=== PATIENT | female | born 1995 | race Caucasian/White ===

== ENCOUNTER 2021-01-17 13:49 | Emergency (ER) | payer OTHER, SELFPAY ==
[2021-01-17 14:06] VITALS: BP 115/72; PULSE 83; RESP 18; TEMP 36.6; O2SAT 99; BMI 21.4
--- NOTE | 2021-01-17 14:14 | USR_ITS ---
PROCEDURE INFORMATION: Exam: US First Trimester, Transabdominal and US , Transvaginal Exam date and time: 01/17/2021 2:51 PM Age: 25 years old Clinical indication: Lmp or gestational age (in weeks): 10 weeks 5 days (by lmp); Other: Vaginal bleedein; ; Additional info: Vaginal bleeding TECHNIQUE: Imaging protocol: Real-time transabdominal obstetrical ultrasound of the maternal pelvis and a first trimester , less than 14 weeks 0 days, with image documentation. Transvaginal imaging was used for better evaluation of the fetus, adnexa, and/or cervix. COMPARISON: US OB >14 Weeks 37612 11/15/2016 10:45 AM FINDINGS: Gestation: There is a large gestational sac which contains complex internal echoes. There is a very small yolk sac. There is no definable pole. Yolk sac measures 3.1 mm diameter. Embryonic/ heart rate: No cardiac activity documented. Placenta: Subchorionic hemorrhage measures 4.2 cm longitudinal by 0.4 cm x 1.1 cm. BIOMETRY: Gestational age (AUA): Estimated gestational age based on the mean sac diameter of the gestational sac is 7 weeks, 6 days. Mean sac diameter: Mean sac diameter of the gestational sac is 25 mm. MATERNAL: Uterus: Anteverted uterus position. No uterine enlargement. Cervix: Unremarkable. Right adnexa: Maternal right ovary is normal in size and sonographic appearance. Left adnexa: Maternal left ovary is normal in size and sonographic appearance. Intraperitoneal space: No pelvic fluid collection. US/US OB <=14 wk fetus w transvag IMPRESSION: 1. Large elongated gestational sac in the fundal aspect of the endometrial cavity which contains scattered low lying internal echoes and a small yolk sac but no visible pole or documented cardiac activity. A nonviable 1st trimester gestation is favored. 2. Subchorionic hemorrhage is present. 3. A short interval follow-up ultrasound is recommended in 1 week, as well as serial documentation of serum quantitative beta HCG levels.
--- NOTE | 2021-01-17 14:15 | W.ED.FEMALGU ---
HPI - Female Genitourinary General: Chief complaint: Urogenital-Female Stated complaint: COMPLICATIONS Time Seen by Provider: 01/17/21 14:14 History of Present Illness: HPI Narrative: 25-year-old female comes in today with concerns of bloody discharge. Patient reports noticing some mild spotting at times. Patient denies any pain or discomfort. Patient denies any fever or chills. Patient has had a total of 3 pregnancies, 1 delivery, and 1 miscarriage. Patient appears well. Patient appears no acute distress. MD elicited complaint: vaginal bleeding and possible miscarriage Onset (ago): day(s) Severity: mild Vaginal bleeding: scant Exacerbating factors: none Associated symptoms: Reports no associated symptoms Treatment prior to arrival: none Sexual activity: No Possible : at home test positive Date of Last Menstrual Period: 10/29/20 Review of Systems General: Reports: 10 or more systems reviewed and unremarkable except in HPI and below : Reports: vaginal bleeding [facility] ED Female Reproductive History: Date of last menstrual period: 10/29/20 Physical Exam Const: COMMON NORMALS: no acute distress and patient oriented x3 GENERAL APPEARANCE: cooperative HENMT: COMMON NORMALS: normocephalic and Normal external nose present HEAD & SCALP: normal to inspection and normocephalic NOSE: Normal external nose present MOUTH: Normal oral and palatal mucosa present Eye: GENERAL EYE: appearance normal, both eyes and all related structures Neck/C-Spine: COMMON NORMALS: full ROM Chest: COMMONS NORMALS: normal inspection of the chest Resp: COMMON NORMALS: normal respiratory effort EFFORT & INSPECTION: Yes able to speak in complete sentences Cardio: COMMON NORMALS: regular rate and regular rhythm RATE: regular rate RHYTHM: regular rhythm GI: COMMON NORMALS: non-tender : COMMON NORMALS: Yes no CVA tenderness BLADDER/KIDNEY EXAM: Yes no CVA tenderness Back/Pelvis: COMMON NORMALS: no CVA tenderness and thoracic and lumbar spine normal to inspection Extremity: COMMON NORMALS: normal to inspection Neuro: COMMON NORMALS: patient oriented x3 and moves all extremities Psych: COMMON NORMALS: mental status grossly normal and cooperative Skin: COMMON NORMALS: no rashes or lesions noted GENERAL SKIN EXAM: no rashes or lesions noted Course ED course: 1500, patient's blood type is B+, confirmed by lab. 1530, ultrasound noted no heart movement, yolk sac was in place, no other significant abnormalities were reported. Vital Signs: Vital signs: Vital Signs Temperature 97.8 F 01/17/21 14:06 Pulse Rate 89 01/17/21 16:09 Respiratory Rate 18 01/17/21 16:09 Blood Pressure 115/72 01/17/21 14:06 Pulse Oximetry 98 01/17/21 16:09 MDM - Female MDM Narrative: Medical decision making narrative: Patient comes in today for concerns of threatened miscarriage. On exam abdomen soft nontender. Bowel sounds are present. Skin was warm and dry. Vital signs were normal. Differential diagnosis includes threatened miscarriage, bleeding in first trimester , urinary tract infection. Laboratory values were unremarkable. Urinalysis had trace red blood cells and white blood cells. hCG was 17,000, ultrasound noted a large elongated gestational sac with a small yolk sac with no visible pole documented or cardiac activity suggesting a nonviable first trimester . Reviewed exam with patient with recommendations for repeat blood testing and ultrasound with MECHANICAL TEST ENGINEER or primary care. Patient reported understanding and agreed to plan. Lab Data: Labs: Lab Results 01/17/21 01/17/21 01/17/21 Range/Units 15:35 15:35 15:36 WBC 7.2 (4.0-10.0) 10^3/ uL RBC 4.08 L (4.1-5.3) 10^6/u L Hgb 11.9 (11.5-15.3) g/dL Hct 37.0 (37.0-47.0) % MCV 90.7 (81-99) fL MCH 29.2 (28.0-34.0) pg MCHC 32.2 (30.0-36.0) g/dL RDW 13.3 (12.1-15.1) % Plt Count 345 (130-400) 10^3/c mm MPV 8.9 (7.4-10.4) fL Neut % (Auto) 76.4 % Lymph % (Auto) 16.0 % [place] % (Auto) 6.8 % Eos % (Auto) 0.1 % Baso % (Auto) 0.6 % Neut # (Auto) 5.51 (1.8-7.7) 10^3/u L Lymph # (Auto) 1.2 (0.8-4.8) 10^3/u L [place] # (Auto) 0.5 (0.2-0.9) 10^3/u L Eos # (Auto) 0.0 (0.0-0.8) 10^3/u L Baso # (Auto) 0.0 (0.0-0.1) 10^3/u L Nucleated RBC % (a uto) 0 % Nucleated RBCs # 0.0 /100WBC Sodium 139 (136-145) mmol/L Potassium 3.5 (3.5-5.1) mmol/L Chloride 102 (98-107) mmol/L Carbon Dioxide 23 (22-29) mmol/L Anion Gap 17.5 (5-19) BUN 7 (6-20) mg/dL Creatinine 0.4 L (0.5-0.9) mg/dL GFR Calculation 191.5 H (90-130) mL/min Glucose 87 (65-115) mg/dL Calculated Osmolal ity 285 (285-295) mOsm/k g Calcium 10.1 (8.5-10.5) mg/dL Total Bilirubin 0.3 (0.15-1.2) mg/dL AST 14 (0-32) U/L ALT 11 (0-33) U/L Alkaline Phosphata se 41 (35-105) IU/L Total Protein 8.1 (6.6-8.7) g/dL Albumin 5.1 (3.5-5.2) g/dL Globulin 3.0 (1.3-4.6) g/dL Ser , [place] 15718.00 mIU/mL Urine Color Yellow (Yellow) Urine Appearance Clear (CLEAR) Urine pH 5 (5-7) Ur Specific Gravit y 1.020 (1.005-1.030) Urine Protein Neg (Negative) Urine Glucose (UA) Norm (Normal) Urine Ketones 1+ H (Negative) Urine Blood 3+ H (Negative) Urine Nitrate Negative (Negative) Urine Bilirubin Neg (Negative) Urine Urobilinogen Norm (Negative) mg/dL Ur Leukocyte Carlotta ase Negative (Negative) Urine RBC 0-4 H (0-2) /hpf Urine WBC 0-4 H (0-5) /hpf Ur Squamous Epith Cells 0-4 H (0-5) /hpf Amorphous Sediment Not Reportable Urine Bacteria Trace (NONE) /hpf Urine Mucus 1+ /hpf Discharge Plan Discharge Patient Disposition: Home Clinical Impression: Miscarriage, threatened, early Condition: Stable Prescriptions: No Action Aspir-81 81 mg Tablet,Delayed Release (Dr/Ec) 81 mg PO DAILY RF: 0 Gummies 400 mcg-35 mg- 25 mg-5 mg Tablet,Chewable 2 tab PO DAILY RF: 0 Discharge Orders: Discharge ED (Routine); Ordered 01/17/21 Ordered By: Flavio Rosales Referrals: Sara Joyce MD [Primary Care Provider] - Discharge Diet: Usual diet Discharge Activity: Increase activity as tolerated Patient Instructions: Threatened Miscarriage (ED), Opioid Safety Activity Restrictions/Additional Instructions: Home and rest. Drink plenty of fluids. Monitor for fever or bleeding greater than one pad an hour. Follow-up with primary care or MECHANICAL TEST ENGINEER tomorrow for appointment for repeat hCG testing and ultrasound. Return to the ED for new concerns or worsening condition. Coding Level of Care Code ED Senior Interaction Designer for Chg Fwd Exam Comprehensive
[2021-01-17 14:49] VITALS: PULSE 77; RESP 18; O2SAT 100
--- NOTE | 2021-01-17 15:01 | PC.NURSE ---
US at bedside
[2021-01-17 15:20] VITALS: PULSE 103; RESP 18; O2SAT 99
[2021-01-17 15:41] VITALS: PULSE 82; RESP 16; O2SAT 98
[2021-01-17 15:46] LABS: Basophils % 0.6 %; Eosinophils % 0.1 %; Hemoglobin 11.9 g/dL (11.5-15.3); Lymphocytes # 1.2 10^3/uL (0.8-4.8); Mean Corpuscular HGB Conc 32.2 g/dL (30.0-36.0); Mean Corpuscular Hemoglobin 29.2 pg (28.0-34.0); Mean Corpuscular Volume 90.7 fL (81-99); Mean Platelet Volume 8.9 fL (7.4-10.4); Monocytes # 0.5 10^3/uL (0.2-0.9); Monocytes % 6.8 %; Neutrophils # 5.51 10^3/uL (1.8-7.7); Neutrophils % 76.4 %; Nucleated Red Blood Cells % 0 %; Platelet Count 345 10^3/cmm (130-400); Red Blood Count 4.08 10^6/uL (4.1-5.3); Red Cell Distribution Width 13.3 % (12.1-15.1); White Blood Count 7.2 10^3/uL (4.0-10.0)
[2021-01-17 16:04] LABS: Urine Appearance Clear (CLEAR); Urine Color Yellow (Yellow)
[2021-01-17 16:05] LABS: Add Urine Microscopic? YES; Bilirubin Urine Neg (Negative); Blood Urine 3+ (Negative); Glucose Urine UA Norm (Normal); Ketones Urine 1+ (Negative); Leukocyte Esterase Urine Negative (Negative); Nitrate Urine Negative (Negative); Protein Urine Neg (Negative); Urobilinogen Urine Norm (Negative); pH Urine 5 (5-7)
[2021-01-17 16:07] LABS: RBC Urine 0-4 /hpf (0-2); Squamous Epithelial Cell Urine 0-4 /hpf (0-5)
[2021-01-17 16:08] LABS: Bacteria Urine TRACE /hpf; Mucus Urine 1+ /hpf; WBC Urine 0-4 /hpf (0-5)
[2021-01-17 16:09] VITALS: PULSE 89; RESP 18; O2SAT 98
[2021-01-17 16:09] LABS: Add Urine Culture? No
[2021-01-17 16:19] LABS: Alanine Aminotransferase 11 U/L (0-33); Albumin Level 5.1 g/dL (3.5-5.2); Alkaline Phosphatase 41 IU/L (35-105); Anion Gap 17.5 (5-19); Aspartate Amino Transferase 14 U/L (0-32); Blood Urea Nitrogen 7 mg/dL (6-20); Calcium 10.1 mg/dL (8.5-10.5); Carbon Dioxide 23 mmol/L (22-29); Chloride 102 mmol/L (98-107); Glomerular Filtration Rate 191.5 mL/min (90-130); Glucose 87 mg/dL (65-115); Osmolality Calculated 285 mOsm/kg (285-295); Potassium 3.5 mmol/L (3.5-5.1); Sodium 139 mmol/L (136-145); Total Bilirubin 0.3 mg/dL (0.15-1.2); Total Protein 8.1 g/dL (6.6-8.7)
== END 2021-01-17 16:40 | disposition home or self-care (01) ==
PROVIDERS: Emergency Provider Nurse Practitioner Family; PCP Family Medicine
DX: O20.0 Threatened abortion (principal); Z3A.00 Weeks of gestation of pregnancy not specified; O26.891 Other specified pregnancy related conditions, first trimester; Z79.82 Long term (current) use of aspirin
CPT/HCPCS: 76801; 76817; 80053; 81001; 84702; 85025; 99283

== ENCOUNTER 2021-01-21 22:48 | Observation (INO) | payer OTHER, SELFPAY ==
[2021-01-21 22:52] VITALS: BP 111/70; PULSE 88; RESP 19; O2SAT 99; BMI 21.1
--- NOTE | 2021-01-21 22:59 | ED_ITS ---
Documented by User: MEGAN Arreola 01/22/21 00:15 HPI - Female Genitourinary General: Chief complaint: Vaginal Bleeding Stated complaint: HEAVY BLEEDING/POST MISCARRIAGE Time Seen by Provider: 01/21/21 22:49 Source: patient Mode of arrival: ambulatory Limitations: no limitations History of Present Illness: HPI Narrative: Patient is a 25-year-old female here for evaluation of vaginal bleeding following a diagnosis of a nonviable . Patient was seen at our facility 4 days ago and had an hCG of over 17,000 but ultrasound showed no heart rate. She tells me at that visit she was having scant brownish discharge. She states they followed up with Dr. Joyce this morning and had a repeat ultrasound performed which again looked like a nonviable . Patient tells me later that day she began having heavy vaginal bleeding and passing large clots. She is having minor pelvic cramping. She denies lightheadedness, dizziness, passing out episodes. Vital signs are stable upon arrival. MD elicited complaint: vaginal bleeding and possible miscarriage Onset (ago): hour(s) Severity: moderate Vaginal discharge: none Vaginal bleeding: heavy, clots and POC/tissue Exacerbating factors: none Relieving factors: none Associated symptoms: Reports vaginal bleeding; Deny abdominal pain or nausea Treatment prior to arrival: none Patient : Yes Date of Last Menstrual Period: 11/08/20 Review of Systems Const: Denies: fever(s), chills, fatigue or malaise Card: Denies: chest pain Resp: Denies: dyspnea GI: Denies: abdominal pain, nausea, vomiting or change in stool character : Reports: vaginal bleeding and pelvic pain (mild cramping ); Denies: flank pain or dysuria Musc: Denies: back pain Neuro: Denies: dizziness [facility] ED Female Reproductive History: Date of last menstrual period: 11/08/20 Physical Exam Const: COMMON NORMALS: no acute distress, average body habitus, patient oriented x3, no limitations, healthy appearing, alert and well nourished GENERAL APPEARANCE: cooperative Resp: COMMON NORMALS: normal respiratory effort GI: COMMON NORMALS: Normal to inspection, nondistended, normoactive bowel sounds present, Soft to palpation, No hepatosplenomegaly present and no masses PALPATION: Yes Soft to palpation, Yes Tenderness to palpation present (GI) (mild-lower abdomen/pelvis) and Yes No hepatosplenomegaly present : COMMON NORMALS: Yes normal external appearance SPECULUM EXAM - VAGINA: Yes vaginal bleeding and Yes tissue present in vagina SPECULUM EXAM - CERVIX: Yes Cervical os open and Yes Tissue present in the cervical os OB/EXTERNAL & SPECULUM: tissue present in vagina, Cervical os open and vaginal bleeding Neuro: COMMON NORMALS: patient oriented x3 SENSORIUM/ORIENTATION: Yes alert Course Vital Signs: Vital signs: Vital Signs Temperature 99.0 F 01/21/21 23:12 Pulse Rate 88 01/21/21 22:52 Respiratory Rate 19 H 01/21/21 22:52 Blood Pressure 111/70 01/21/21 22:52 Pulse Oximetry 99 01/21/21 22:52 MDM - Female MDM Narrative: Medical decision making narrative: Care transferred to Dr. Saucedo at end of shift. Labs pending. Lab Data: Labs: Lab Results 01/21/21 01/21/21 01/22/21 Range/Units 23:30 23:30 00:35 WBC 10.0 (4.0-10.0) 10^3/ uL RBC 3.37 L (4.1-5.3) 10^6/u L Hgb 9.9 L 9.1 L (11.5-15.3) g/dL Hct 30.9 L 27.8 L (37.0-47.0) % MCV 91.7 (81-99) fL MCH 29.4 (28.0-34.0) pg MCHC 32.0 (30.0-36.0) g/dL RDW 13.4 (12.1-15.1) % Plt Count 291 (130-400) 10^3/c mm MPV 9.1 (7.4-10.4) fL Neut % (Auto) 77.0 % Lymph % (Auto) 15.0 % [place] % (Auto) 6.4 % Eos % (Auto) 0.9 % Baso % (Auto) 0.4 % Neut # (Auto) 7.73 H (1.8-7.7) 10^3/u L Lymph # (Auto) 1.5 (0.8-4.8) 10^3/u L [place] # (Auto) 0.6 (0.2-0.9) 10^3/u L Eos # (Auto) 0.1 (0.0-0.8) 10^3/u L Baso # (Auto) 0.0 (0.0-0.1) 10^3/u L Nucleated RBC % (a uto) 0 % Nucleated RBCs # 0.0 /100WBC Sodium 139 (136-145) mmol/L Potassium 3.9 (3.5-5.1) mmol/L Chloride 105 (98-107) mmol/L Carbon Dioxide 25 (22-29) mmol/L Anion Gap 12.9 (5-19) BUN 10 (6-20) mg/dL Creatinine 0.6 (0.5-0.9) mg/dL GFR Calculation 119.9 (90-130) mL/min Glucose 99 (65-115) mg/dL Calculated Osmolal ity 287 (285-295) mOsm/k g Calcium 9.1 (8.5-10.5) mg/dL Total Bilirubin 0.2 (0.15-1.2) mg/dL AST 13 (0-32) U/L ALT 9 (0-33) U/L Alkaline Phosphata se 33 L (35-105) IU/L Total Protein 7.1 (6.6-8.7) g/dL Albumin 4.4 (3.5-5.2) g/dL Globulin 2.7 (1.3-4.6) g/dL Ser , Goran i-Qnt 8896.00 mIU/mL Discharge Plan Discharge Admit Provider: Sara Joyce Coding Level of Care Code ED Management Professional for Chg Fwd Exam Expanded Problem Focused Documented by User: Joy Saucedo MD 01/22/21 02:49 HPI - Female Genitourinary General: Chief complaint: Vaginal Bleeding Stated complaint: HEAVY BLEEDING/POST MISCARRIAGE Time Seen by Provider: 01/21/21 22:49 Course Vital Signs: Vital signs: Vital Signs Temperature 99.0 F 01/21/21 23:12 Pulse Rate 88 01/21/21 22:52 Respiratory Rate 19 H 01/21/21 22:52 Blood Pressure 111/70 01/21/21 22:52 Pulse Oximetry 99 01/21/21 22:52 MDM - Female MDM Narrative: Medical decision making narrative: I took patient over from midlevel. She did have vaginal bleeding here. Of hypotension and had a likely vagal response to her IV. Her bleeding is seem to have slowed down pressure is stabilized. Her hemoglobin is 9.1. Ultrasound showed incomplete AB with no gestational sac. I spoke to patient's OB Dr. Joyce and will admit for observation. Patient stable when she left the ER. Lab Data: Labs: Lab Results 01/21/21 01/21/21 01/22/21 Range/Units 23:30 23:30 00:35 WBC 10.0 (4.0-10.0) 10^3/ uL RBC 3.37 L (4.1-5.3) 10^6/u L Hgb 9.9 L 9.1 L (11.5-15.3) g/dL Hct 30.9 L 27.8 L (37.0-47.0) % MCV 91.7 (81-99) fL MCH 29.4 (28.0-34.0) pg MCHC 32.0 (30.0-36.0) g/dL RDW 13.4 (12.1-15.1) % Plt Count 291 (130-400) 10^3/c mm MPV 9.1 (7.4-10.4) fL Neut % (Auto) 77.0 % Lymph % (Auto) 15.0 % [place] % (Auto) 6.4 % Eos % (Auto) 0.9 % Baso % (Auto) 0.4 % Neut # (Auto) 7.73 H (1.8-7.7) 10^3/u L Lymph # (Auto) 1.5 (0.8-4.8) 10^3/u L [place] # (Auto) 0.6 (0.2-0.9) 10^3/u L Eos # (Auto) 0.1 (0.0-0.8) 10^3/u L Baso # (Auto) 0.0 (0.0-0.1) 10^3/u L Nucleated RBC % (a uto) 0 % Nucleated RBCs # 0.0 /100WBC Sodium 139 (136-145) mmol/L Potassium 3.9 (3.5-5.1) mmol/L Chloride 105 (98-107) mmol/L Carbon Dioxide 25 (22-29) mmol/L Anion Gap 12.9 (5-19) BUN 10 (6-20) mg/dL Creatinine 0.6 (0.5-0.9) mg/dL GFR Calculation 119.9 (90-130) mL/min Glucose 99 (65-115) mg/dL Calculated Osmolal ity 287 (285-295) mOsm/k g Calcium 9.1 (8.5-10.5) mg/dL Total Bilirubin 0.2 (0.15-1.2) mg/dL AST 13 (0-32) U/L ALT 9 (0-33) U/L Alkaline Phosphata se 33 L (35-105) IU/L Total Protein 7.1 (6.6-8.7) g/dL Albumin 4.4 (3.5-5.2) g/dL Globulin 2.7 (1.3-4.6) g/dL Ser , Goran i-Qnt 8896.00 mIU/mL Imaging Data: US OB: Attestation: I personally reviewed and interpreted this imaging study as follows: Radiologist's impression: [address] [address] Ultrasound Report Signed Patient: Pat Rueda Unit #: [id number] : [id number] Age/Sex: 25 / F ADM Date: 01/21/21 Loc: ER Room/Bed: Attending Dr: Ordering Provider/Ordering MD: Nazia Celestin Date of Service: 01/22/21 Procedure(s): US pelvic limited [id number] Accession Number(s): [id number] Report Number: [id number] PROCEDURE INFORMATION: Exam: US , Limited Exam date and time: 01/22/2021 1:08 AM Age: 25 years old Clinical indication: complicated by abdominal or pelvic pain; Lower; First trimester; Gestational age or lmp: 11 w; ; Additional info: Active miscarriage TECHNIQUE: Imaging protocol: Real-time ultrasound of the maternal uterus with image documentation. Exam focused on the clinical indication. COMPARISON: US CV echo complete* [id number] 01/17/2021 3:01 PM FINDINGS: Gestation: There is no evidence for an intrauterine gestation. MATERNAL: Uterus: There is heterogeneous echogenicity material seen within the endometrial canal compatible with some clotted blood and/or debris. These findings suggest incomplete . Right adnexa: The right ovary measures 2.1 x 2.4 x 2 4 cm. Vascular flow is demonstrated within the right ovary with color Doppler and duplex waveform sonography. Left adnexa: The left ovary measures 3.1 x 2.52.2 cm. US/US pelvic limited [id number] IMPRESSION: There is no evidence for an intrauterine gestational sac. There is heterogeneous material seen within the endometrial canal compatible with clotted blood and debris, findings suggesting incomplete . EKG Data: EKG 1: Attestation: I personally reviewed and interpreted this EKG as follows: EKG Data: 01/22/21 EKG interpretation time: 00:06 Interpretation: nsr hr [address] or t wave abnormalities qrs 97 qtc 404 Discharge Plan Discharge Admit Provider: Sara Joyce Coding Level of Care Code ED Management Professional for Chg Fwd Exam Expanded Problem Focused
[2021-01-21 23:12] VITALS: TEMP 37.2
[2021-01-22] VITALS (28 sets, daily range): BP systolic 88–107; BP diastolic 43–76; PULSE 76–108; RESP 15–18; TEMP 36.6–37.2; O2SAT 95–100; BMI 21.1
[2021-01-22 00:15] LABS: Basophils % 0.4 %; Eosinophils # 0.1 10^3/uL (0.0-0.8); Eosinophils % 0.9 %; Hematocrit 30.9 % (37.0-47.0); Hemoglobin 9.9 g/dL (11.5-15.3); Lymphocytes # 1.5 10^3/uL (0.8-4.8); Mean Corpuscular Hemoglobin 29.4 pg (28.0-34.0); Mean Corpuscular Volume 91.7 fL (81-99); Mean Platelet Volume 9.1 fL (7.4-10.4); Monocytes # 0.6 10^3/uL (0.2-0.9); Monocytes % 6.4 %; Neutrophils # 7.73 10^3/uL (1.8-7.7); Nucleated Red Blood Cells % 0 %; Platelet Count 291 10^3/cmm (130-400); Red Blood Count 3.37 10^6/uL (4.1-5.3); Red Cell Distribution Width 13.4 % (12.1-15.1)
[2021-01-22] MEDS: sodium chloride 0.9% 1,000 ML 999 ML IV (00:28)
--- NOTE | 2021-01-22 00:30 | USR_ITS ---
PROCEDURE INFORMATION: Exam: US , Limited Exam date and time: 01/22/2021 1:08 AM Age: 25 years old Clinical indication: complicated by abdominal or pelvic pain; Lower; First trimester; Gestational age or lmp: 11 w; ; Additional info: Active miscarriage TECHNIQUE: Imaging protocol: Real-time ultrasound of the maternal uterus with image documentation. Exam focused on the clinical indication. COMPARISON: US CV echo complete* [id number] 01/17/2021 3:01 PM FINDINGS: Gestation: There is no evidence for an intrauterine gestation. MATERNAL: Uterus: There is heterogeneous echogenicity material seen within the endometrial canal compatible with some clotted blood and/or debris. These findings suggest incomplete . Right adnexa: The right ovary measures 2.1 x 2.4 x 2 4 cm. Vascular flow is demonstrated within the right ovary with color Doppler and duplex waveform sonography. Left adnexa: The left ovary measures 3.1 x 2.52.2 cm. US/US pelvic limited [id number] IMPRESSION: There is no evidence for an intrauterine gestational sac. There is heterogeneous material seen within the endometrial canal compatible with clotted blood and debris, findings suggesting incomplete .
[2021-01-22] MEDS: miSOPROStol 100 mcg tablet 600 MCG PO (00:31)
[2021-01-22] MEDS: miSOPROStol 200 mcg Tablet 600 MCG PO (00:36)
--- NOTE | 2021-01-22 00:40 | PC.NURSE ---
Pt unable to tolerate orthostatic BP at this time
[2021-01-22 00:42] LABS: Alanine Aminotransferase 9 U/L (0-33); Albumin Level 4.4 g/dL (3.5-5.2); Alkaline Phosphatase 33 IU/L (35-105); Anion Gap 12.9 (5-19); Aspartate Amino Transferase 13 U/L (0-32); Blood Urea Nitrogen 10 mg/dL (6-20); Calcium 9.1 mg/dL (8.5-10.5); Carbon Dioxide 25 mmol/L (22-29); Chloride 105 mmol/L (98-107); Globulin 2.7 g/dL (1.3-4.6); Glomerular Filtration Rate 119.9 mL/min (90-130); Glucose 99 mg/dL (65-115); Osmolality Calculated 287 mOsm/kg (285-295); Potassium 3.9 mmol/L (3.5-5.1); Sodium 139 mmol/L (136-145); Total Bilirubin 0.2 mg/dL (0.15-1.2); Total Protein 7.1 g/dL (6.6-8.7)
[2021-01-22 00:48] LABS: Hematocrit 27.8 % (37.0-47.0); Hemoglobin 9.1 g/dL (11.5-15.3)
[2021-01-22] MEDS: miSOPROStol 100 mcg tablet 400 MCG PO (01:36)
[2021-01-22] MEDS: sodium chloride 0.9% 1,000 ML 100 ML IV (01:37)
--- NOTE | 2021-01-22 02:30 | PC.NURSE ---
Pt regularly rounded on during stay In ED.
[2021-01-22] MEDS: ibuprofen 800 mg tablet PO (04:00)
[2021-01-22] MEDS: lactated ringers 1,000 ML 125 ML IV (04:00)
[2021-01-22 05:24] LABS: Basophils % 0.3 %; Eosinophils % 0.1 %; Hematocrit 24.3 % (37.0-47.0); Hemoglobin 7.8 g/dL (11.5-15.3); Lymphocytes # 2.5 10^3/uL (0.8-4.8); Lymphocytes % 19.4 %; Mean Corpuscular HGB Conc 32.1 g/dL (30.0-36.0); Mean Corpuscular Hemoglobin 29.4 pg (28.0-34.0); Mean Corpuscular Volume 91.7 fL (81-99); Mean Platelet Volume 8.9 fL (7.4-10.4); Monocytes # 0.6 10^3/uL (0.2-0.9); Monocytes % 4.7 %; Neutrophils # 9.52 10^3/uL (1.8-7.7); Neutrophils % 75.2 %; Nucleated Red Blood Cells % 0 %; Platelet Count 267 10^3/cmm (130-400); Red Blood Count 2.65 10^6/uL (4.1-5.3); Red Cell Distribution Width 13.4 % (12.1-15.1); White Blood Count 12.7 10^3/uL (4.0-10.0)
--- NOTE | 2021-01-22 05:30 | PC.NURSE ---
total blood loss at this time per weight is 540ml.
[2021-01-22] MEDS: sodium chloride 0.9% (100 ml) 100 ML 50 ML (06:07)
--- NOTE | 2021-01-22 06:20 | PM.HP ---
Providers/Chief Complaint Admitting Physician: Sara Joyce MD Primary Care Provider: Sara Joyce MD Chief Complaint: HEAVY BLEEDING/POST MISCARRIAGE History of Present Illness Pat Rueda is a 25 year old female G3, P1 at approximately 8 weeks gestation by her LMP with a suspected nonviable who presented to the ER complaining of bleeding. She was initially seen in the ER on 01/17 for blood-tinged vaginal discharge and was diagnosed at that time with a gestational sac and a yolk sac. She followed up in clinic with me on 01/21 and repeat ultrasound showed a gestational sac with 2 yolk sacs. Her sac measurements and the length of time between the 2 ultrasounds did not technically meet criteria for confirmed miscarriage, but nonviable was suspected. She was not having any bleeding at that time and plan was made for repeat ultrasound in one week. She states she began bleeding and cramping later in the day and presented to the ER last night when it seemed that the bleeding was excessive. In the ER vaginal exam revealed several clots and some tissue was removed by the GAUGER DELIVERY. After which her bleeding did significantly improve but it was felt best to monitor her in observation, given the amount she had already lost. Abdominal ultrasound did not show any gestational sac. 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 Several hours later she got up to use the restroom and passed large blood clots. She then had a complete syncopal episode with loss of bladder and rapid response was called. ER physician Dr. Saucedo presented to the call and ordered 2 units of blood. I was notified and when I presented the patient was still in Trendelenburg though her lips had good pink color. Her blood pressure was 88/54 pulse 101. Nursing had weighed all the blood loss which came to 540 mL from midnight until her syncopal episode around 5 am. Vaginal exam was performed on the patient and the cervix was very open and boggy with a moderate amount of placental tissue that was removed using ring forceps. The uterus was very firm and compact. Pitocin was added to her IV fluids and her first unit of blood had arrived and has begun transfusing. Review of Systems Narrative: Currently she feels a little bit lightheaded but she states it is nothing like when she actually passed out. She really is not feeling any cramping or abdominal pain. Card: Denies: chest pain or palpitations Resp: Denies: dyspnea or chest congestion GI: Denies: abdominal pain, nausea or vomiting : Reports: vaginal bleeding Musc: Denies: joint pain or limited range of motion Neuro: Denies: headache(s) or numbness in extremities Kaden/Lymph: Denies: easy bruising or petechiae Medications/Allergies Home Medications Medication Instructions Recorded Confirmed Last Taken Type Gummies 2 tab PO DAILY 01/17/21 01/17/21 01/16/21 History aspirin 81 mg PO DAILY 01/17/21 01/17/21 01/16/21 History Allergies Allergy/AdvReac Type Severity Reaction Status Date / Time No Known Allergies Allergy Verified 01/17/21 16:10 PFSH Acute Female Reproductive History: Date of last menstrual period: 11/08/20 : 4 Vitals/I&O/Wt Last Vital Signs Temp 98.5 F 01/22/21 06:02 Pulse 103 H 01/22/21 06:02 Resp 15 01/22/21 06:02 BP 95/57 01/22/21 06:02 Pulse Ox 100 01/22/21 06:02 01/21/21 01/21/21 01/22/21 14:59 22:59 06:59 Intake Total 1000 / 1000 Output Total 400 / 400 Balance 600 / 600 Weight last 48 hrs Weight 122 lb 15.934 oz Weight 123 lb Physical Exam HENMT: COMMON NORMALS: normocephalic and atraumatic FACE & SINUS: normal facial exam Eye: COMMON NORMALS: Equal, round and reactive pupils present and EOMs intact bilaterally Chest: COMMONS NORMALS: normal inspection of the chest Resp: COMMON NORMALS: normal respiratory effort EFFORT & INSPECTION: Yes able to speak in complete sentences AUSCULTATION: clear to auscultation bilaterally Cardio: COMMON NORMALS: regular rhythm; negative for regular rate (Minimally tachycardic around the low 100s) GI: COMMON NORMALS: Soft to palpation, non-tender, No hepatosplenomegaly present and no masses : COMMON NORMALS: Yes no CVA tenderness SPECULUM EXAM - CERVIX: Yes Cervical os open (External os open internal os closed, cervix large and boggy), Yes Tissue present in the cervical os (Golf ball sized amount of placental tissue removed) and Yes Cervical bleeding (Minimal) BIMANUAL EXAM - VAGINA & UTERUS: Yes uterine size normal and Yes consistency normal (Firm) BIMANUAL EXAM - ADNEXA, OTHER: No tender Extremity: GENERAL: No calf tenderness, No cyanosis and No edema Neuro: COMMON NORMALS: patient oriented x3, moves all extremities and no focal motor deficits SENSORIUM/ORIENTATION: Yes alert (She is able to smile and joke under the circumstances) Data : 01/22/21 11:10 01/21/21 23:30 A&P Assessment and plan (1) Incomplete : I now suspect with removal of the placental tissue from the cervical os that her miscarriage is complete. Continue to monitor and weigh her blood loss. Status: Acute (2) Acute blood loss anemia: Patient had complete syncopal episode while using the restroom but nursing was present the entire time so she did not have a fall and is without injury. She is currently receiving her first of 2 units of packed red blood cells. I expect that her bleeding should resolve, but if it remains significant she will need to go to the OR for D&C. Status: Acute Attestations Medical Necessity Statement*: Need for blood transfusion. Care did not cross 2 midnights. 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
--- NOTE | 2021-01-22 06:37 | PC.NURSE ---
Pt unable to tolerate orthostatic BP at this time. several attempts made.
--- NOTE | 2021-01-22 06:40 | PC.NURSE ---
RN called to beside by patient to assist with ambulation to bathroom to void at 0500. Patient was sat up on the side of the bed where she was noted to not have any dizziness or lightheadedness. Patient the ambulated to the bathroom with RN standby assist. Patient sat down on the toilet and began to feel lightheaded and as if she may pass out. This RN then called out for a second RN to assist. Mariam Cotto RN at bedside to assist. Patient then had a syncopal episode and would not arouse to sternal rub. Emergency call light was pushed where third RN was requested to call a rapid response. This RN and SUZANNE Cotto then carried the patient to the bed where patient began talking to RNs. Rapid response team arrived approximately 3 minutes after called overhead, where a fluid bolus was initiated, order for second line was given, Dr. Saucedo at bedside and verbal order was given to call lab and have 2 units of PRBC's prepared for patient to receive. Vitals once patient was back in bed at 0510 were BP 104/60, HR 80 O2 99% RA, 17RR. Dr. Joyce was called and notified at 0519 that rapid response was called and all that had been performed at that time as well as two units of PRBCs being ordered by Dr. Saucedo. states that she is on her way to the hospital. Dr. Joyce arrived at 0540 and requested that patient be placed in bed with stirrup so that a pelvic exam could be performed. At 0610 Dr. Joyce performed pelvic exam where large clots were noted in the cervix. Dr. Joyce verbally ordered 20units of pitocin to be added to a 1L bag of LR and run at 150ml/hr.
[2021-01-22] MEDS: sodium chloride 0.9% 250 ML 50 ML (08:30)
[2021-01-22] MEDS: acetaminophen 500 mg Tablet 1000 MG PO (08:32)
--- NOTE | 2021-01-22 08:45 | PC.NURSE ---
Peripad changed at this time, small amount of blood noted
--- NOTE | 2021-01-22 11:13 | PC.NURSE ---
Pad changed at this time, minimal bleeding noted
[2021-01-22 11:17] LABS: Hematocrit 27.1 % (37.0-47.0); Hemoglobin 9.1 g/dL (11.5-15.3)
== END 2021-01-22 16:20 | disposition home or self-care (01) ==
LOC: ER 01-22 00:44 → OBGYN 01-22 02:14
PROVIDERS: Physician Assistant; Admitting Provider Family Medicine; Emergency Provider Emergency Medicine; PCP Family Medicine; Visit Provider Family Medicine
DX: O03.4 Incomplete spontaneous abortion without complication (principal); D62 Acute posthemorrhagic anemia; Z3A.08 8 weeks gestation of pregnancy
CPT/HCPCS: 36415; 36430; 76857; 80053; 84702; 85014; 85018; 85025; 86850; 86900; 86920; 96361; 96365; 96366; 99285; G0378; J7030; J7050; P9016

== ENCOUNTER 2022-01-02 07:11 | Inpatient (IN) | payer OTHER, SELFPAY ==
[2022-01-02] VITALS (79 sets, daily range): BP systolic 86–150; BP diastolic 51–99; PULSE 70–109; RESP 16; TEMP 37.1; O2SAT 98–100; BMI 26.4
[2022-01-02 07:56] LABS: Basophils % 0.2 %; Eosinophils # 0.1 10^3/uL (0.0-0.8); Eosinophils % 0.8 %; Hematocrit 25.8 % (37.0-47.0); Lymphocytes # 1.5 10^3/uL (0.8-4.8); Lymphocytes % 14.7 %; Mean Corpuscular Hemoglobin 24.7 pg (28.0-34.0); Mean Corpuscular Volume 79.6 fl (81-99); Mean Platelet Volume 10.1 fL (7.4-10.4); Monocytes # 0.8 10^3/uL (0.2-0.9); Monocytes % 8.5 %; Neutrophils # 7.45 10^3/uL (1.8-7.7); Neutrophils % 74.9 %; Nucleated Red Blood Cells % 0 %; Platelet Count 469 10^3/cmm (130-400); Red Blood Count 3.24 10^6/uL (4.1-5.3); White Blood Count 9.9 10^3/uL (4.0-10.0)
[2022-01-02] MEDS: dextrose 5%-lactated ringers 1,000 ML 125 ML IV ×2 (08:28→22:50)
[2022-01-02] MEDS: ampicillin 2,000 MG in sodium chloride 0.9% (plus) 50 ML 100 MG IV (08:30)
[2022-01-02] MEDS: oxytocin 30 UNIT/500 ML BAG IV (08:30)
[2022-01-02] MEDS: ondansetron 2 mg/ML SDV 2 mL 4 MG IVP (09:15)
[2022-01-02] MEDS: lactated ringers 1,000 ML 999 ML IV ×2 (10:55→12:06)
--- NOTE | 2022-01-02 12:30 | ANES.PREANE2 ---
Pre-Anesthetic Assessment Height/Weight: Height 1.63 m Weight 69.853 kg Temp Pulse Resp BP Pulse Ox 98.8 F 109 H 16 135/78 100 01/02/22 09:19 01/02/22 12:50 01/02/22 07:11 01/02/22 12:45 01/02/22 12:50 Preop Diagnosis: IUP Labor Epidural Familial anesthetic complications: none Was Beta Lonnie taken within 24 hours: N/A Was Clonidine taken within 24 hours: N/A Last intake: 06 yogurt Currently clears Last Intake: 06:00 Social No alcohol and No tobacco Exam alert and oriented x 3 Airway Submandibular: within normal limits Cervical ROM: within normal limits Mallampati: Class II Dentition: full History/ROS No significant complaints Pulmonary None reported CV/HEM None reported None reported Hepatic None reported GI None reported Metabolic None reported Musc/skel None reported Neuropsych None reported Anesthetic Plan ASA status: 2 Anesthesia: Anesthesia Evaluation and Regional (specify below) (epidural) Risk of > 500 ml blood loss (7ml/kg in children): Yes, adequate IV access and fluids planned Medications/Allergies Home Medications Medication Instructions Recorded Confirmed Last Taken Type PNV 153-FA 400 mcg-om3 35 mg-dha 2 tab PO DAILY 01/17/21 01/17/21 01/16/21 History 25 mg-epa 5 mg-fish oil chew tablet ( Gummies) aspirin 81 mg tablet,delayed 81 mg PO DAILY 01/17/21 01/17/21 01/16/21 History release Allergies Allergy/AdvReac Type Severity Reaction Status Date / Time No Known Allergies Allergy Verified 01/17/21 16:10 Current Medications Generic Name Dose Route Start Last Admin Trade Name Freq PRN Reason Stop Dose Admin Dextrose/Lactated Ringer's 1,000 mls @ 125 mls/hr 01/02/22 07:15 01/02/22 08:28 Dextrose 5%-Lactated Ringers IV 125 mls/hr .Q8H YAMILKA Administration Lactated Ringer's 1,000 mls @ 999 mls/hr 01/02/22 07:13 01/02/22 12:06 Lactated Ringers IV 999 mls/hr .Q1H1M PRN Administration See label comments Oxytocin 30 unit in 500 mls @ 1 mls/hr 01/02/22 08:15 01/02/22 08:30 Pitocin IV 1 milliunit/min .Q24H YAMILKA 1 mls/hr Administration Protocol 1 MILLIUNIT/MIN Ondansetron HCl 4 mg 01/02/22 07:11 01/02/22 09:15 Ondansetron 2 Mg/Ml Sdv 2 Ml IVP 4 mg Q4H PRN Administration NAUSEA AND VOMITING PFSH Anesthesia Female Reproductive History Date of last menstrual period: 11/08/20 : 4 Data Anesthesia : 01/02/22 07:20 Short CBC 01/02/22 Range/Units 07:20 WBC 9.9 (4.0-10.0) 10^3/uL Hgb 8.0 L (11.5-15.3) g/dL Hct 25.8 L (37.0-47.0) % MCV 79.6 L (81-99) fl Plt Count 469 H (130-400) 10^3/cmm Neut % (Auto) 74.9 % Neut # (Auto) 7.45 (1.8-7.7) 10^3/uL Cardiac Studies: No Data to Display
[2022-01-02] MEDS: ampicillin 1,000 MG in sodium chloride 0.9% (plus) 50 ML 100 MG IV ×3 (12:49→21:35)
--- NOTE | 2022-01-02 12:57 | ANES.PROC ---
Anesthesia Procedures Procedure/Date: 01/02/22 labor epidural Epidural: Time Out Performed: Yes Consents Signed: Procedure Consent Consent: from patient, risks and benefits reviewed and patient agrees to proceed Lumbar Level: L3-L4 Epidural position: sitting Epidural procedure: sterile prep of area, 1% lidocaine to numb the area (3 mls), 18 g needle, negative for paresthesia passed, test dose given, 1.5% xylocaine 1:200k epi (3 mls), placed PCEA, no systemic response, sterile dressing applied, L.U.D. no apparent complications and 0.2% Ropiavacaine @ mls/hr (11) Additional Comments: attempt 1: + CSF return, catheter not threaded, needle removed. attempt 2: - CSF return and - blood return. DOV at 5, catheter threaded to 13 at skin. Pt. not feeling contractions, no bolus given.
--- NOTE | 2022-01-02 17:02 | PM.OPHPUD ---
Labor & Delivery H&P Update Date of Procedure: January 02, 2022 Date H&P Performed: 12/30/21 Admission Diagnosis: at 39w 4 days gestation Preop diagnosis: IUP Planned procedure: Induction of labor
--- NOTE | 2022-01-02 22:17 | PM.DELIVERY ---
Delivery Note: Date of delivery: January 02, 2022 Pre-Delivery Course: Mother had routine care. She had a history of eclampsia with her prior and was on aspirin therapy this . Delivery: This is a 26-year-old G4, P1 at 39 weeks 4 days gestation who was admitted for elective induction. Her cervix was favorable and she was started on Pitocin. She received an epidural for pain management. She had artificial rupture of membranes with a copious amount of clear fluid. Rupture of membranes was approximately 5 hours prior to delivery. Mother was GBS positive and received multiple doses of ampicillin prior to delivery. She had a normal spontaneous vaginal delivery of a viable male infant weight 30 to 85 g, 7 pounds 4 ounces, Apgars 7 and 9 over an intact perineum. The infant was suctioned at delivery and placed on mother's chest. The cord was clamped and cut. The placenta was delivered grossly intact and normal to inspection. There was a very small second-degree laceration perineal that was sutured using 3-0 chromic. Mother was doing well after delivery. Estimated blood loss 150 mL. 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
[2022-01-02] MEDS: oxytocin 30 UNIT/500 ML BAG 600 UNIT IV (22:49)
[2022-01-03] VITALS (20 sets, daily range): BP systolic 90–157; BP diastolic 56–89; PULSE 75–111; RESP 16–17; TEMP 36.7–37.3; O2SAT 97–98
[2022-01-03] MEDS: miSOPROStol 200 mcg Tablet 800 MCG PR (00:25)
[2022-01-03] MEDS: fentaNYL 50 mcg/mL INJ 2mL 100 MCG IVP (00:29)
[2022-01-03] MEDS: ibuprofen 800 mg tablet PO ×4 (01:39→20:22)
[2022-01-03] MEDS: docusate sodium 100 mg Capsule PO (10:57)
[2022-01-03] MEDS: prenatal vitamin Capsule 1 CAP PO (10:57)
[2022-01-03] MEDS: ferrous sulfate EC 325 mg Tablet PO (10:58)
[2022-01-03 15:13] LABS: Hematocrit 23.2 % (37.0-47.0); Hemoglobin 7.1 g/dL (11.5-15.3); Mean Corpuscular HGB Conc 30.6 g/dL (30.0-36.0); Mean Corpuscular Hemoglobin 24.9 pg (28.0-34.0); Mean Corpuscular Volume 81.4 fl (81-99); Mean Platelet Volume 10.1 fL (7.4-10.4); Platelet Count 445 10^3/cmm (130-400); Red Blood Count 2.85 10^6/uL (4.1-5.3); Red Cell Distribution Width 14.3 % (12.1-15.1)
--- NOTE | 2022-01-03 17:50 | P.PN_ITS ---
Subjective Subjective: She is doing well. She is ambulating, tolerating a regular diet, and has average vaginal bleeding and has no complaints. Vitals/I&O/Wt Last Vital Signs Temp 98.3 F 01/03/22 15:54 Pulse 105 H 01/03/22 15:54 Resp 16 01/03/22 15:54 BP 114/74 01/03/22 15:54 Pulse Ox 98 01/03/22 06:00 01/03/22 01/03/22 01/03/22 06:59 14:59 22:59 Intake Total 500 / 3300.00 Output Total 650 / 950 Balance -150 / 2350.00 Weight last 48 hrs Weight 69.853 kg Physical Exam Narrative: Alert and oriented alert and oriented, sitting up in bed, heart regular rate and rhythm, lungs clear to auscultation bilaterally, abdomen is soft and nontender, fundus is firm and U- 2, extremities have no edema and no calf tenderness Urinary Catheter Management: Aguilar: Cath Placed During This Visit: yes Reason for Continuing Indwelling Catheter: Accurate Measurement of Urinary Output in Critically Ill Patients Urinary Catheter Date of Insertion: 01/02/22 Urinary Catheter Time of Insertion: 13:40 Data : 01/03/22 13:45 A&P Assessment and plan (1) Normal spontaneous vaginal delivery: Routine care Status: Acute Attestations Medical Necessity Statement*: Routine care Coding Level of Care Code Acute Area Development Manager for Chg Fwd Diagnoses Normal spontaneous vaginal delivery O80
[2022-01-04 04:10] VITALS: BP 110/73; PULSE 86; RESP 16
[2022-01-04] MEDS: lanolin oint 7 gm 1 APPLIC TOPICAL (06:04)
[2022-01-04] MEDS: ibuprofen 800 mg tablet PO (08:14)
[2022-01-04] MEDS: ferrous sulfate EC 325 mg Tablet PO (08:15)
[2022-01-04] MEDS: docusate sodium 100 mg Capsule PO (08:15)
[2022-01-04 11:00] VITALS: BP 100/63; PULSE 79; RESP 16; TEMP 36.7; O2SAT 98
--- NOTE | 2022-01-04 15:00 | PM.DCS ---
Discharge Providers Date of Admission: 01/02/22 07:11 Date of Discharge: January 04, 2022 Attending Provider at Admission: Sara Joyce MD Attending Provider at Discharge: Sara Joyce MD Primary Care Provider: Sara Joyce MD Diagnoses at Discharge Discharge Diagnosis (1) Normal spontaneous vaginal delivery: Status: Acute Reason for Visit Reason for Visit: IOL Hospital Course Hospital Course This is a 26-year-old G4 now P2 who was admitted for induction at 39 weeks 4 days gestation. She had a normal spontaneous vaginal delivery of a viable male . Mother and did well after delivery. They were kept for close to 48 hours since mother was GBS positive. She did receive multiple doses of ampicillin prior to delivery. She was ambulating, not complaining of any pain, and had decreased vaginal bleeding on the day of discharge. Physical Exam Narrative: Alert and oriented, sitting up in bedside chair, abdomen is soft and nontender, fundus is firm, there is no calf tenderness and no pedal edema. Urinary Catheter Management: Aguilar: Cath Placed During This Visit: yes Reason for Continuing Indwelling Catheter: Accurate Measurement of Urinary Output in Critically Ill Patients Urinary Catheter Date of Insertion: 01/02/22 Urinary Catheter Time of Insertion: 13:40 Discharge Data Studies Completed and Pending Laboratory Results WBC 15.0 10^3/uL (4.0-10.0) H 01/03/22 13:45 RBC 2.85 10^6/uL (4.1-5.3) L 01/03/22 13:45 Hgb 7.1 g/dL (11.5-15.3) L 01/03/22 13:45 Hct 23.2 % (37.0-47.0) L 01/03/22 13:45 MCV 81.4 fl (81-99) 01/03/22 13:45 MCH 24.9 pg (28.0-34.0) L 01/03/22 13:45 MCHC 30.6 g/dL (30.0-36.0) 01/03/22 13:45 RDW 14.3 % (12.1-15.1) 01/03/22 13:45 Plt Count 445 10^3/cmm (130-400) H 01/03/22 13:45 MPV 10.1 fL (7.4-10.4) 01/03/22 13:45 Neut % (Auto) 74.9 % 01/02/22 07:20 Lymph % (Auto) 14.7 % 01/02/22 07:20 [place] % (Auto) 8.5 % 01/02/22 07:20 Eos % (Auto) 0.8 % 01/02/22 07:20 Baso % (Auto) 0.2 % 01/02/22 07:20 Neut # (Auto) 7.45 10^3/uL (1.8-7.7) 01/02/22 07:20 Lymph # (Auto) 1.5 10^3/uL (0.8-4.8) 01/02/22 07:20 [place] # (Auto) 0.8 10^3/uL (0.2-0.9) 01/02/22 07:20 Eos # (Auto) 0.1 10^3/uL (0.0-0.8) 01/02/22 07:20 Baso # (Auto) 0.0 10^3/uL (0.0-0.1) 01/02/22 07:20 Nucleated RBC % (auto) 0 % 01/02/22 07:20 Nucleated RBCs # 0.0 /100WBC 01/02/22 07:20 Blood Type B Positive 01/02/22 07:20 Rho(D) Type Positive 01/02/22 07:20 Antibody Screen Negative 01/02/22 07:20 Vitals Last Vital Signs Temp 98.1 F 01/04/22 11:00 Pulse 79 01/04/22 11:00 Resp 16 01/04/22 11:00 BP 100/63 01/04/22 11:00 Pulse Ox 98 01/04/22 11:00 Discharge Plan Discharge Patient Disposition: Home Condition: Stable Prescriptions: New ferrous sulfate 325 mg (65 mg iron) Tablet,Delayed Release (Dr/Ec) 325 mg PO DAILY 30 Days Qty: 30 2RF Continued Gummies 400 mcg-35 mg- 25 mg-5 mg Tablet,Chewable 2 tab PO DAILY 0RF Discontinued aspirin 81 mg Tablet,Delayed Release (Dr/Ec) 81 mg PO DAILY 0RF Discharge Orders: Discharge Order (Routine); Ordered 01/04/22 Ordered By: Sara Joyce Referrals: Sara Joyce MD [Primary Care Provider] - 1 month Discharge Diet: Usual diet Discharge Activity: Limit activity as instructed Patient Instructions: Depression (DC), Expression, Collection and Storage of Breast Milk (DC), Bleeding (DC), Preeclampsia and Eclampsia After Delivery (GEN), OB Discharge Report, OB Food/Drug Interaction Guide, Opioid Safety, OB Home Care, OB Vaginal Deliveries Discharge Attestations Time Spent in Discharge Care*: less than 30 min Quality Metrics Clinical Quality Measures [ No reported AMI, CVA or VTE this stay] Coding Level of Care Code Acute Chg FW DC note Diagnoses Normal spontaneous vaginal delivery O80
[2022-01-04 17:15] VITALS: BP 106/72; PULSE 82; RESP 16; TEMP 36.5; O2SAT 100
--- NOTE | 2022-01-04 17:53 | ANE.PACU2 ---
Inpatient post-anesthesia follow up: Airway intact: Yes Vital signs: Temperature 98.1 F Pulse Rate 79 Respiratory Rate 16 Blood Pressure 100/63 Pulse Oximetry 98 Oxygen Delivery Me thod Room Air Oxygen Flow Rate Fraction of Inspir ed Oxygen Hydration adequate: Yes Nausea and vomiting: No Pain level: 1 Mental status: Baseline
== END 2022-01-04 17:30 | disposition home or self-care (01) | DRG 807 ==
LOC: OPOB 07:23 → OBGYN 07:23
PROVIDERS: Admitting Provider Family Medicine; PCP Family Medicine; Visit Provider Family Medicine
DX: O99.824 Streptococcus B carrier state complicating childbirth (principal); Z37.0 Single live birth; Z3A.39 39 weeks gestation of pregnancy
CPT/HCPCS: 36415; 51702; 59409; 85025; 85027; 86850; 86900; J0290; J2405; J2795; J3010